=== PATIENT | female | born 1965 | race Caucasian/White ===

== ENCOUNTER 2017-03-03 13:27 | Emergency (ER) | payer BC, MEDICAID ==
[~2017-03-03] VITALS: Ht 165.1 cm; Wt 96.0 kg
[~2017-03-03 13:27] MED LIST: BUSP10TA PO; CYCL-259 PO; CYCL5TAB PO; HYDR-3138 PO; HYDR50TA3 PO; LORA1TAB PO; LOSA25TA5 PO; MELO7.5T5 PO; OMEP-110 PO; POTA20PA8 PO; PREG25CA PO
[2017-03-03] MEDS ORDERED: OXYMETAZOLINE NASAL SPRAY 0.05%, 15ML ONE ×2 (13:37→13:38)
[2017-03-03] MEDS ORDERED: SILVER NITRATE STICK TP ONE (13:37)
[2017-03-03] MEDS ORDERED: SODIUM CHLORIDE 0.9% 1,000ML IVBOLUS ONE (14:00)
[2017-03-03] MEDS ORDERED: OXYMETAZOLINE NASAL SPRAY 0.05%, 15ML NAS ONE (14:00)
[2017-03-03] MEDS ORDERED: PLEASE ENTER HEIGHT AND WEIGHT MC SCH (14:00)
[2017-03-03] MEDS ORDERED: MORPHINE SULFATE 4 MG/ML, 1ML IVPush PRN (14:00)
[2017-03-03] MEDS ORDERED: ONDANSETRON 2MG/ML, 2ML IVPush ONE (14:00)
[2017-03-03 14:25] LABS: BLOOD UREA NITROGEN 16 mg/dL (7-18)
[2017-03-03] MEDS ORDERED: MORPHINE SULFATE 4 MG/ML, 1ML ONE (14:26)
[2017-03-03] MEDS ORDERED: ONDANSETRON 2MG/ML, 2ML ONE (14:26)
[2017-03-03] MEDS ORDERED: morphine SULFATE 10 MG/ML, 1ML IVPush ONE (14:30)
[2017-03-03 14:54] VITALS: BP 138/70
[2017-03-03] MEDS ORDERED: POTASSIUM CHLORIDE 20 MEQ TAB.ER.PRT ONE (14:59)
[2017-03-03] MEDS ORDERED: POTASSIUM CHLORIDE 20 MEQ TAB.ER.PRT PO ONE (15:00)
== END 2017-03-03 15:53 | disposition home or self-care (01) ==
LOC: ED 15:40
DX: R04.0 Epistaxis (principal); I10 Essential (primary) hypertension; E05.90 Thyrotoxicosis, unspecified without thyrotoxic crisis or storm
CPT/HCPCS: 36415; 80048; 82040; 85025; 85610; 93005; 96361; 96374; 96375; 99285; J2270; J2405; J7030

== ENCOUNTER 2018-10-06 03:20 | Observation (INO) | payer MEDICAID ==
[~2018-10-06] VITALS: Ht 165.1 cm; Wt 104.0 kg
[~2018-10-06 03:20] MED LIST changes: -HYDR-3138 PO; +HYDR-3237 PO; +LOSA25TA25 PO; -LOSA25TA5 PO; +POTA20PA25 PO; -POTA20PA8 PO
--- NOTE | 2018-10-06 03:32 | NUR ---
52 Y/O FEMALE BIB [facility] FOR [facility]UE FOR THE PAST FEW DAYS, ACCOMPANIED WITH UPPER BACK PAIN. PT REPORTS TONIGHT THAT SHE BEGAN HAVING A "BURNING" SENSATION IN HER CHEST, LT SIDED, RADIATES TO THE LEFT ARM AND SHOULDER. +NAUSEA, +DIAPHORESIS. PT REPORTS RECENTLY BEING TAKEN OFF DAILY ASPIRIN AND ZOLOFT. SHE DENIES ANY SOB, DIZZINESS AND WEAKNESS. EMS ADMINISTERED 324MG OF ASA EN ROUTE. PT REFUSED NITRO. UPON ARRIVAL TO THE ER, THE PT IS CAOX4 WITH A GCS OF 15, STILL C/O "BURNING SENSATION" IN CHEST. DENIES ANY PMHX OTHER THAN HYPERLIPIDEMIA AND HTN. EKG SHOW SINUS RHYTHM WITH FREQUENT PVCS, PT IN SINUS TACH AND THEN GOES INTO A TRIGIMINEY RHYTHM. HR 106. ALL OTHER VITALS STABLE. NO ST CHANGES PRESENT ON THE MONITOR. RODNEY ARCE AT BEDSIDE EVALUATING PT, WILL CONTINUE TO MONITOR
--- NOTE | 2018-10-06 04:13 | NUR ---
PT STATES THE NAUSEA IS BACK AND IS NOW REPORTING "SWEATING". IN NAD. ERP NOTIFIED
[2018-10-06 04:16] LABS: BASOPHILS # (AUTO) 0.03 x10^3/uL (0-0.1); BASOPHILS % (AUTO) 1 % (0-1); EOSINOPHILS # (AUTO) 0.16 x10^3/uL (0-0.4); EOSINOPHILS % (AUTO) 2 % (1-7); LYMPHOCYTES # (AUTO) 2.51 x10^3/uL (1-3.4); LYMPHOCYTES % (AUTO) 35 % (22-44); MD NO; MEAN CORPUSCULAR HEMOGLOBIN 28.5 pg (27.0-34.8); MEAN CORPUSCULAR HGB CONC 34.2 g/dL (32.4-35.8); MEAN CORPUSCULAR VOLUME 83.4 fL (80-100); MEAN PLATELET VOLUME 8.6 fL (7.4-10.4); MONOCYTES # (AUTO) 0.73 x10^3/uL (0.2-0.8); MONOCYTES % (AUTO) 10 % (2-9); NEUTROPHILS # (AUTO) 3.78 x10^3/uL (1.8-6.8); NEUTROPHILS % (AUTO) 52 % (42-75); PLATELET COUNT 234 x10^3/uL (130-400); RED BLOOD COUNT 5.11 x10^6/uL (3.82-5.3); RED CELL DISTRIBUTION WIDTH 13.8 % (9.6-15.2)
[2018-10-06] MEDS ORDERED: ONDANSETRON 2MG/ML, 2ML ONE (04:23)
[2018-10-06 04:26] LABS: ALBUMIN 3.5 g/dL (3.4-5.0); ANION GAP 6 mmol/L (5-15); CALCIUM 9.5 mg/dL (8.5-10.1); CHLORIDE 104 mmol/L (98-107); CREATININE 0.74 mg/dL (0.55-1.02)
--- NOTE | 2018-10-06 04:27 | NUR ---
PT MEDICATED PER EMAR FOR NAUSEA. 5 RIGHTS ADDRESSED.
[2018-10-06 04:30] LABS: TROPONIN I < 0.015 ng/mL (0.000-0.045)
[2018-10-06] MEDS ORDERED: ONDANSETRON 2MG/ML, 2ML IVPush ONE (04:30)
[2018-10-06] MEDS ORDERED: NITROGLYCERIN SINGLE TAB 0.4 MG SL ONE (05:02)
--- NOTE | 2018-10-06 05:05 | NUR ---
PT REPORTS WORSENING CHEST PAIN THAT COMES AND GOES 8/10. PT APPEARS PALE AND UNCOMFORTABLE. PT ALSO REPORTS NAUSEA WITH THE CHEST PAIN EPISODES. DR. PITTS AWARE
[2018-10-06 05:09] LABS: RAPID INFLUENZA A Negative (Negative); RAPID INFLUENZA B Negative (Negative)
[2018-10-06] MEDS ORDERED: LOSA25TA25 PO (05:16)
[2018-10-06] MEDS ORDERED: CHOL400C PO (05:16)
[2018-10-06] MEDS ORDERED: ATOR-2 PO (05:16)
[2018-10-06] MEDS ORDERED: PREG100C PO (05:16)
[2018-10-06] MEDS ORDERED: HYDR25TA6 PO (05:16)
[2018-10-06] MEDS ORDERED: HYDR-3240 PO (05:16)
[2018-10-06] MEDS ORDERED: CYCL5TAB PO (05:16)
[2018-10-06] MEDS ORDERED: POTA20TA14 PO (05:16)
[2018-10-06] MEDS ORDERED: ASPI-496 PO (05:16)
[2018-10-06] MEDS ORDERED: ROPI1TAB2 PO (05:16)
[2018-10-06] MEDS ORDERED: ACETAMINOPHEN 500 MG TABLET ONE (05:21)
--- NOTE | 2018-10-06 05:58 | NUR ---
PT STATES SHE FEELS BETTER "BUT FEELS WEIRD". ALL VITALS STABLE. AT BEDSIDE. AWAITING BED FOR PT. WILL CONTINUE TO MONITOR.
[2018-10-06] MEDS ORDERED: ASPIRIN 325 MG TABLET EC PO ONE (06:30)
[2018-10-06] MEDS ORDERED: NITROGLYCERIN 0.4 MG BOTTLE (25 TABS) SL PRN (06:30)
[2018-10-06] MEDS ORDERED: MORPHINE SULFATE 4 MG/ML, 1ML IV PRN (06:30)
[2018-10-06] MEDS ORDERED: IBUPROFEN 600 MG TABLET PO PRN (06:30)
[2018-10-06] MEDS ORDERED: NITROGLYCERIN 0.4 MG/SPRAY SL PRN (06:30)
--- NOTE | 2018-10-06 06:31 | NUR ---
REPORT CALLED TO [facility]
[2018-10-06] MEDS ORDERED: DIPHENHYDRAMINE 25 MG CAPSULE PO PRN (07:00)
[2018-10-06] MEDS ORDERED: ASPIRIN 81 MG TABLET EC PO SCH (07:00)
[2018-10-06] MEDS ORDERED: HYDROcodone/APAP 10/325 MG TABLET PO ONE (07:00)
[2018-10-06] MEDS ORDERED: CYCLOBENZAPRINE 10 MG TABLET PO PRN (07:00)
[2018-10-06] MEDS ORDERED: ONDANSETRON 2MG/ML, 2ML IVPush PRN (07:00)
[2018-10-06] MEDS ORDERED: ONDANSETRON ODT 4 MG PO PRN (07:00)
[2018-10-06] MEDS ORDERED: ENALAPRILAT 1.25 MG/ML, 2ML IVPush PRN (07:00)
[2018-10-06] MEDS ORDERED: POTASSIUM CHLORIDE 20 MEQ TAB.ER.PRT PO ONE (07:00)
[2018-10-06] MEDS ORDERED: LORazepam 1MG TABLET PO ONE (07:00)
[2018-10-06] MEDS ORDERED: hydrALAzine 20 MG/ML, 1ML IVPush PRN (07:00)
[2018-10-06 07:06] LABS: CHOLESTEROL, TOTAL 146 mg/dL (140-239); TRIGLYCERIDES 161 mg/dL (50-200); VLDL CHOLESTEROL 32 mg/dL (0-25)
[2018-10-06 07:10] LABS: CHOL/HDL RATIO 3.7; HDL CHOL % 27 % (28-40); HDL CHOLESTEROL (DIRECT) 39 mg/dL (40-60); LDL CHOLESTEROL,CALCULATED 75 mg/dL (54-169); LDL/HDL RATIO 1.9 (0.5-3.0); TROPONIN I < 0.015 ng/mL (0.000-0.045)
[2018-10-06 07:55] VITALS: BP 124/82
[2018-10-06] MEDS ORDERED: NSAIDS MC SCH (08:00)
[2018-10-06] MEDS ORDERED: [UNRECOGNIZED DRUG - REMARK] MC SCH (08:00)
[2018-10-06] MEDS ORDERED: HYDROCHLOROTHIAZIDE 25 MG TABLET PO SCH (09:00)
[2018-10-06] MEDS ORDERED: POTASSIUM CHLORIDE 20 MEQ in LACTATED RINGERS 1,000 ML IV SCH (09:00)
[2018-10-06] MEDS ORDERED: PREGABALIN 25 MG CAPSULE PO SCH (09:00)
[2018-10-06] MEDS ORDERED: ENOXAPARIN 40 MG/0.4 ML SQ SCH (09:00)
[2018-10-06] MEDS ORDERED: MELOXICAM 15 MG TABLET PO SCH (09:00)
[2018-10-06] MEDS ORDERED: SERTRALINE 50MG TABLET PO SCH (09:00)
[2018-10-06] MEDS ORDERED: SODIUM CHLORIDE FLUSH 10ML SYR IVF SCH (09:00)
[2018-10-06] MEDS ORDERED: FAMOTIDINE 20 MG TABLET PO SCH (09:00)
[2018-10-06] MEDS ORDERED: LOSARTAN 25MG TABLET PO SCH ×2 (09:00)
[2018-10-06] MEDS ORDERED: SENNA/DOCUSATE TABLET PO SCH (09:00)
[2018-10-06 09:41] VITALS: BP 128/78
[2018-10-06] MEDS ORDERED: REGADENOSON 0.4 MG/5 ML SYRINGE ONE (09:59)
[2018-10-06 13:10] LABS: TROPONIN I < 0.015 ng/mL (0.000-0.045)
[2018-10-06] MEDS ORDERED: PRAZ2CAP2 PO (14:24)
[2018-10-06] MEDS ORDERED: ATORVASTATIN 80 MG TABLET PO SCH (21:00)
[2018-10-06] MEDS ORDERED: ATORVASTATIN 40 MG TABLET PO SCH (21:00)
[2018-10-07] MEDS ORDERED: ASPIRIN 325 MG TABLET EC PO SCH (06:00)
== END 2018-10-06 16:00 | disposition home or self-care (01) ==
LOC: MERGE 03:20 → ED 06:01 → 5SO 06:02 → INTOOBSV 06:02 → ED 06:48 → DCLOUNGE 15:48
PROVIDERS: ADMIT Family Medicine; ATTEND Family Medicine
DX: R07.89 Other chest pain (principal); E87.6 Hypokalemia; I10 Essential (primary) hypertension; F32.9 Major depressive disorder, single episode, unspecified; F41.9 Anxiety disorder, unspecified; E11.9 Type 2 diabetes mellitus without complications; Z79.82 Long term (current) use of aspirin; M54.5 Low back pain; E66.9 Obesity, unspecified; E11.649 Type 2 diabetes mellitus with hypoglycemia without coma; G89.29 Other chronic pain; Z79.899 Other long term (current) drug therapy; Z68.38 Body mass index [BMI] 38.0-38.9, adult; Z88.2 Allergy status to sulfonamides; Z88.6 Allergy status to analgesic agent; Z88.5 Allergy status to narcotic agent
CPT/HCPCS: 36415; 71045; 78452; 80048; 80061; 82040; 83036; 83690; 83735; 84484; 85025; 87400; 93005; 93017; 96365; 96366; 96372; 96375; 99284; A9502; C9898; G0378; J1650; J2405; J2785; J3480; J7120

== ENCOUNTER 2020-05-24 12:06 | Emergency (ER) | payer MEDICAID ==
[~2020-05-24] VITALS: Ht 165.1 cm; Wt 90.0 kg
[~2020-05-24 12:06] MED LIST changes: +ASPI-496 PO; +ATOR-2 PO; +CETI10TA18 PO; +CHOL400C PO; +FAMO-79 PO; +FLUT16SP24 NAS; +HYDR-3240 PO; +HYDR-3246 PO; +HYDR25TA6 PO; +IBUP-1902 PO; +IRBE150T9 PO; +LIFI1DRO EACHEYE; +METF500T27 PO; +METH500T7 PO; +PANT40TA6 PO; +POTA20TA14 PO; +PRAZ2CAP2 PO; +PREG100C PO; +ROPI1TAB4 PO; +SERT100T32 PO
--- NOTE | 2020-05-24 12:25 | NUR ---
PT C/O RIGHT ARM PAIN X2 WEEKS, PT PLACED ON VITALS MONITORS. FALL PRECAUTIONS IN PLACE. CALL LIGHT WITHIN REACH.
[2020-05-24] MEDS ORDERED: ONDANSETRON ODT 8 MG ONE (12:29)
[2020-05-24] MEDS ORDERED: METHOCARBAMOL 750 MG TABLET ONE (12:29)
[2020-05-24] MEDS ORDERED: OXYcodone/APAP 7.5/325MG TABLET ONE (12:29)
[2020-05-24] MEDS ORDERED: METHOCARBAMOL 750 MG TABLET PO ONE (12:30)
[2020-05-24] MEDS ORDERED: ONDANSETRON ODT 8 MG PO ONE (12:30)
[2020-05-24] MEDS ORDERED: OXYcodone/APAP 7.5/325MG TABLET PO ONE (12:30)
[2020-05-24 12:39] LABS: HCT (SEDRATE) 39.7 % (34.6-47.8)
[2020-05-24 12:40] LABS: BASOPHILS # (AUTO) 0.04 x10^3/uL (0-0.1); BASOPHILS % (AUTO) 1 % (0-1); EOSINOPHILS # (AUTO) 0.11 x10^3/uL (0-0.4); EOSINOPHILS % (AUTO) 1 % (1-7); LYMPHOCYTES % (AUTO) 22 % (22-44); MD NO; MEAN CORPUSCULAR HEMOGLOBIN 27.1 pg (27.0-34.8); MEAN CORPUSCULAR HGB CONC 32.8 g/dL (32.4-35.8); MEAN CORPUSCULAR VOLUME 82.8 fL (80-100); MEAN PLATELET VOLUME 8.1 fL (7.4-10.4); MONOCYTES # (AUTO) 0.77 x10^3/uL (0.2-0.8); MONOCYTES % (AUTO) 10 % (2-9); NEUTROPHILS # (AUTO) 5.16 x10^3/uL (1.8-6.8); NEUTROPHILS % (AUTO) 66 % (42-75); PLATELET COUNT 217 x10^3/uL (130-400); RED BLOOD COUNT 4.76 x10^6/uL (3.82-5.3); RED CELL DISTRIBUTION WIDTH 13.9 % (9.6-15.2)
[2020-05-24 12:52] LABS: ANION GAP 10 mmol/L (5-15); CALCIUM 9.3 mg/dL (8.5-10.1); CHLORIDE 108 mmol/L (98-107); CREATININE 0.61 mg/dL (0.55-1.02)
[2020-05-24] MEDS ORDERED: HYDROcodone/APAP 10/325 MG TABLET PO ONE (13:00)
[2020-05-24] MEDS ORDERED: HYDROcodone/APAP 10/325 MG TABLET ONE (13:02)
[2020-05-24 13:58] VITALS: BP 113/73
== END 2020-05-24 14:05 | disposition home or self-care (01) ==
LOC: ED 12:43
DX: M25.511 Pain in right shoulder (principal); R06.02 Shortness of breath; R07.89 Other chest pain; E11.9 Type 2 diabetes mellitus without complications; I10 Essential (primary) hypertension; E78.00 Pure hypercholesterolemia, unspecified; E05.90 Thyrotoxicosis, unspecified without thyrotoxic crisis or storm
CPT/HCPCS: 36415; 71045; 80048; 85025; 85651; 86140; 99284; Q0162

== ENCOUNTER 2020-10-13 02:25 | Emergency (ER) | payer MEDICAID ==
[~2020-10-13] VITALS: Ht 165.1 cm; Wt 86.5 kg
[~2020-10-13 02:25] MED LIST changes: -CYCL-259 PO; +CYCL10TA2 PO; +HYDR-1067 PO; -HYDR-3240 PO; -HYDR-3246 PO; +HYDR-3248 PO; -HYDR50TA3 PO; +HYDR50TA6 PO; +METH-639 PO; -METH500T7 PO
--- NOTE | 2020-10-13 03:00 | NUR ---
patient changed into hospital gown. in NAD on arrival. asked to wait in waiting room by this RN due to patient presenting with SOB and cough. VS remain stable on RA. patient does state that she took 6 baby aspirin's total [employer] with 911 dispatch recommendation of taking 4 additional one's after she had taken 2 shortly before making the call. patient does not present with any SOB at this time. She reports CP radiating to back so 2L NC applied to patient. Call treviño in reach. safety maintained. will continue to monitor.
[2020-10-13 03:52] LABS: BASOPHILS % (AUTO) 1 % (0-1); EOSINOPHILS % (AUTO) 1 % (1-7); LYMPHOCYTES % (AUTO) 23 % (22-44); MEAN CORPUSCULAR HEMOGLOBIN 28.2 pg (27.0-34.8); MEAN CORPUSCULAR HGB CONC 34.6 g/dL (32.4-35.8); MEAN PLATELET VOLUME 8.4 fL (7.4-10.4); MONOCYTES % (AUTO) 8 % (2-9); NEUTROPHILS % (AUTO) 67 % (42-75); PLATELET COUNT 219 x10^3/uL (130-400); RED BLOOD COUNT 4.72 x10^6/uL (3.82-5.3); RED CELL DISTRIBUTION WIDTH 13.7 % (9.6-15.2)
[2020-10-13] MEDS ORDERED: SERT25TA PO (03:52)
--- NOTE | 2020-10-13 03:57 | NUR ---
patient resting in bed in NAD. call treviño in reach. safety maintained. will continue to monitor. droplet plus precautions continued
[2020-10-13 04:01] LABS: CHLORIDE 109 mmol/L (98-107)
[2020-10-13 04:03] LABS: MD NO
[2020-10-13 04:11] LABS: ALANINE AMINOTRANSFERASE 34 U/L (12-78); ALBUMIN 3.6 g/dL (3.4-5.0); ALKALINE PHOSPHATASE 94 U/L (45-117); ANION GAP 9 mmol/L (5-15); BILIRUBIN,TOTAL 0.8 mg/dL (0.2-1.0); CALCIUM 9.2 mg/dL (8.5-10.1); CREATININE 0.59 mg/dL (0.55-1.02); TOTAL PROTEIN 7.6 g/dL (6.4-8.2); TROPONIN I < 0.015 ng/mL (0.000-0.045)
--- NOTE | 2020-10-13 04:44 | NUR ---
updated in lobby with patient's permission. call treviño in reach. safety maintained. droplet plus precautions maintained. patient reports chest pain has decreased to a 4/10 and nausea has gotten better since last assessment. in NAD. will continue to monitor.
[2020-10-13 05:51] VITALS: BP 142/66
== END 2020-10-13 05:53 | disposition home or self-care (01) ==
LOC: ED 05:00
DX: R07.89 Other chest pain (principal); R11.0 Nausea; I21.9 Acute myocardial infarction, unspecified; R94.31 Abnormal electrocardiogram [ECG] [EKG]; M54.9 Dorsalgia, unspecified; I10 Essential (primary) hypertension; E11.9 Type 2 diabetes mellitus without complications; E78.00 Pure hypercholesterolemia, unspecified; J45.909 Unspecified asthma, uncomplicated
CPT/HCPCS: 36415; 71045; 80053; 84484; 85025; 93005; 99285

== ENCOUNTER 2020-11-02 17:18 | Emergency (ER) | payer MEDICAID ==
[~2020-11-02] VITALS: Ht 165.1 cm; Wt 94.0 kg
[~2020-11-02 17:18] MED LIST changes: +SERT25TA PO
[2020-11-02 17:29] VITALS: BP 134/75
[2020-11-02 18:25] LABS: BASOPHILS % (AUTO) 1 % (0-1); EOSINOPHILS % (AUTO) 2 % (1-7); LYMPHOCYTES % (AUTO) 24 % (22-44); MEAN CORPUSCULAR HEMOGLOBIN 28.4 pg (27.0-34.8); MEAN CORPUSCULAR HGB CONC 34.4 g/dL (32.4-35.8); MEAN PLATELET VOLUME 8.7 fL (7.4-10.4); MONOCYTES % (AUTO) 8 % (2-9); NEUTROPHILS % (AUTO) 66 % (42-75); PLATELET COUNT 217 x10^3/uL (130-400); RED BLOOD COUNT 4.69 x10^6/uL (3.82-5.3); RED CELL DISTRIBUTION WIDTH 13.6 % (9.6-15.2)
[2020-11-02 18:26] LABS: MD NO
[2020-11-02 18:36] LABS: ALANINE AMINOTRANSFERASE 31 U/L (12-78); ALBUMIN 3.6 g/dL (3.4-5.0); ANION GAP 9 mmol/L (5-15); CHLORIDE 111 mmol/L (98-107)
[2020-11-02 18:38] LABS: ALKALINE PHOSPHATASE 113 U/L (45-117); BILIRUBIN,TOTAL 0.6 mg/dL (0.2-1.0); TOTAL PROTEIN 7.2 g/dL (6.4-8.2)
--- NOTE | 2020-11-02 18:47 | NUR ---
REPORT FROM [facility] AT THIS TIME
== END 2020-11-02 20:05 | disposition home or self-care (01) ==
LOC: ED 18:17
DX: B34.9 Viral infection, unspecified (principal); Z20.822 Contact with and (suspected) exposure to COVID-19; E11.9 Type 2 diabetes mellitus without complications; I10 Essential (primary) hypertension; E78.00 Pure hypercholesterolemia, unspecified; J45.909 Unspecified asthma, uncomplicated
CPT/HCPCS: 71045; 80053; 85025; 87635; 99284